=== PATIENT | female | born 1955 | race Caucasian/White ===

== ENCOUNTER 2021-10-15 11:50 | Emergency (ER) | payer MEDICARE, OTHER ==
[~2021-10-15] VITALS: Ht 162.6 cm; Wt 110.7 kg
[2021-10-15] MEDS ORDERED: CLON1 (14:05)
[2021-10-15] MEDS ORDERED: FURO40 (14:06)
[2021-10-15] MEDS ORDERED: GABA300 (14:06)
[2021-10-15] MEDS ORDERED: Ropinirole HCl1 MG (14:07)
[2021-10-15] MEDS ORDERED: K-Dur10 MEQ (14:07)
[2021-10-15] MEDS ORDERED: ALLO300 (14:07)
[2021-10-15] MEDS ORDERED: GLIP5 (14:08)
[2021-10-15] MEDS ORDERED: PLAQUENIL200 MG (14:08)
[2021-10-15] MEDS ORDERED: METF500 (14:08)
[2021-10-15] MEDS ORDERED: ATOR40TA (14:08)
[2021-10-15] MEDS ORDERED: LEVSOD100 (14:08)
[2021-10-15] MEDS ORDERED: CARV3.125 (14:09)
[2021-10-15] MEDS ORDERED: OMEP20ER (14:09)
[2021-10-15] MEDS ORDERED: DULO60 (14:09)
[2021-10-15 14:15] LABS: BASOPHILS ABSOLUTE AUTO 0.06 K/mm3 (0.00-0.23); BASOPHILS PERCENT AUTO 1 % (0-2); EOSINOPHILS PERCENT AUTO 3 % (0-6); Hematocrit 35.5 % (33.0-51.0); IMMATURE GRAN ABSOLUTE AUTO 0.02 K/mm3 (0.00-0.10); IMMATURE GRAN PERCENT AUTO 0 % (0-1); LYMPHOCYTES ABSOLUTE AUTO 1.79 K/mm3 (0.84-5.20); LYMPHOCYTES PERCENT AUTO 22 % (21-46); MONOCYTES ABSOLUTE AUTO 0.63 K/mm3 (0.16-1.47); MONOCYTES PERCENT AUTO 8 % (4-13); Mean Corpuscular HGB 26.5 pg (26.0-34.0); Mean Corpuscular Volume 86 fL (80-100); Mean Platelet Volume 10.8 fL (9.1-12.4); NEUTROPHILS ABSOLUTE AUTO 5.44 K/mm3 (1.96-9.15); NEUTROPHILS PERCENT AUTO 67 % (41-73); Platelet Count 294 K/mm3 (150-400); RDW Coefficient Variation 17.7 % (11.7-14.2); RDW Standard Deviation 55.6 fL (35.1-46.3); Red Blood Cell Count 4.15 M/mm3 (3.80-5.20); White Blood Cell Count 8.14 K/mm3 (4.00-11.30)
[2021-10-15 14:20] LABS: C-REACTIVE PROTEIN, EXT RANGE 1.81 mg/dL (0.000-0.300)
[2021-10-15 14:23] LABS: Albumin, Blood 3.3 g/dL (3.4-5.0); Albumin/Globulin Ratio 0.8 (0.8-1.8); Bilirubin, Total 0.6 mg/dL (0.1-1.0); Bun/Creatinine Ratio 24.2 (12.0-20.0); Calcium, Blood 9.9 mg/dL (8.5-10.1); Creatinine, Blood 0.83 mg/dL (0.40-1.00); Globulin, Blood 4.1 g/dL (2.2-4.0); Potassium, Blood 3.8 mmol/L (3.5-5.5); Total Protein, Blood 7.4 g/dL (6.4-8.2)
[2021-10-15] MEDS ORDERED: LASIX40 MG PO ×2 (15:37→16:35)
[2021-10-15] MEDS ORDERED: CEPH500 PO ×2 (15:37→16:35)
== END 2021-10-15 16:05 | disposition home or self-care (01) ==
LOC: ER 11:50
PROVIDERS: Physician Assistant
DX: I11.0 Hypertensive heart disease with heart failure (principal); I50.9 Heart failure, unspecified; L03.115 Cellulitis of right lower limb; E03.9 Hypothyroidism, unspecified; E11.9 Type 2 diabetes mellitus without complications; Z79.899 Other long term (current) drug therapy; Z79.84 Long term (current) use of oral hypoglycemic drugs; Z86.73 Personal history of transient ischemic attack (TIA), and cerebral infarction without residual deficits
CPT/HCPCS: 36415; 80053; 83880; 85025; 86140; 93005; 93010; 93971; A9270; J1885; J1940

== ENCOUNTER 2021-12-23 07:06 | Emergency (ER) | payer MEDICARE, OTHER ==
[~2021-12-23] VITALS: Ht 162.6 cm; Wt 107.0 kg
[~2021-12-23 07:06] MED LIST: ALLO300; ATOR40TA; CARV3.125; CEPH500 PO; CLON1; DULO60; FURO40; GABA300; GLIP5; K-Dur10 MEQ; LASIX40 MG PO; LEVSOD100; METF500; OMEP20ER; PLAQUENIL200 MG; Ropinirole HCl1 MG
[2021-12-23 08:20] LABS: BASOPHILS ABSOLUTE AUTO 0.07 K/mm3 (0.00-0.23); BASOPHILS PERCENT AUTO 1 % (0-2); EOSINOPHILS ABSOLUTE AUTO 0.11 K/mm3 (0.00-0.68); EOSINOPHILS PERCENT AUTO 1 % (0-6); Hematocrit 34.6 % (33.0-51.0); Hemoglobin 10.6 g/dL (11.5-16.0); IMMATURE GRAN ABSOLUTE AUTO 0.02 K/mm3 (0.00-0.10); IMMATURE GRAN PERCENT AUTO 0 % (0-1); LYMPHOCYTES ABSOLUTE AUTO 1.98 K/mm3 (0.84-5.20); LYMPHOCYTES PERCENT AUTO 19 % (21-46); MONOCYTES PERCENT AUTO 6 % (4-13); Mean Corpuscular HGB Conc 30.6 g/dL (31.5-36.5); Mean Corpuscular Volume 82 fL (80-100); Mean Platelet Volume 11.2 fL (9.1-12.4); NEUTROPHILS ABSOLUTE AUTO 7.73 K/mm3 (1.96-9.15); NEUTROPHILS PERCENT AUTO 74 % (41-73); Platelet Count 324 K/mm3 (150-400); RDW Coefficient Variation 16.3 % (11.7-14.2); RDW Standard Deviation 48.1 fL (35.1-46.3); Red Blood Cell Count 4.24 M/mm3 (3.80-5.20); White Blood Cell Count 10.51 K/mm3 (4.00-11.30)
[2021-12-23 08:35] LABS: Albumin, Blood 3.4 g/dL (3.4-5.0); Albumin/Globulin Ratio 0.9 (0.8-1.8); Bilirubin, Total 0.5 mg/dL (0.1-1.0); Bun/Creatinine Ratio 54.4 (12.0-20.0); Calcium, Blood 10.1 mg/dL (8.5-10.1); Creatinine, Blood 1.03 mg/dL (0.40-1.00); Globulin, Blood 3.6 g/dL (2.2-4.0); Potassium, Blood 4.1 mmol/L (3.5-5.5)
[2021-12-23 09:22] LABS: Source, Urine Clean Catch
[2021-12-23 09:34] LABS: Appearance, Urine Cloudy (Clear); Bilirubin, Urine Neg (Neg); Blood, Urine 5+ (Neg); Color, Urine Yellow (P-Yellow); Glucose Qualitative, Urine Neg (Neg); Ketones, Urine Neg (Neg); Leukocyte Esterase, Urine 1+ (Neg); Nitrite, Urine Neg (Neg); Protein, Urine 2+ (Neg); Urobilinogen, Urine NORM (Normal)
[2021-12-23 09:40] LABS: Percent Saturation 5.7 % (15.0-50.0)
[2021-12-23 09:44] LABS: Bacteria Few /hpf; Red Blood Cells, Urine 50-100 /hpf (0-2); Squamous Epithelial Cells Rare /hpf (Few)
[2021-12-23] MEDS ORDERED: CODE30 PO (12:27)
== END 2021-12-23 12:42 | disposition home or self-care (01) ==
LOC: ER 07:06
PROVIDERS: Emergency Medicine; Physician Assistant
DX: N95.0 Postmenopausal bleeding (principal); G25.81 Restless legs syndrome; I11.0 Hypertensive heart disease with heart failure; I50.9 Heart failure, unspecified; E03.9 Hypothyroidism, unspecified; Z79.899 Other long term (current) drug therapy; Z79.890 Hormone replacement therapy; Z86.73 Personal history of transient ischemic attack (TIA), and cerebral infarction without residual deficits
CPT/HCPCS: 36415; 71046; 76830; 76856; 80053; 81001; 82728; 83540; 83550; 84484; 85025; 87086; 93005; 93010; 96365; 96366; 99284-25; J2916

== ENCOUNTER → 2022-04-06 | Outpatient (CLI) | payer MEDICARE, OTHER ==
[~2022-04-06] MED LIST changes: +ALLOPURINOL1 GM PO; -ATOR40TA; +ATOR40TA PO; +CODE30 PO; +ENTRESTO 24 MG1 EACH PO; -GABA300; +GABA300 PO; -GLIP5; +GLIP5 PO; -K-Dur10 MEQ; +K-Dur10 MEQ PO; -LEVSOD100; +LEVSOD100 PO; -METF500; +METF500 PO; +METO25 PO; -OMEP20ER; +OMEP20ER PO; +ONDA4 PO; +PRAM.125 PO; +SOAANZ20 M1 PO; +SPIR25; +SPIR25 PO; +TRAM50 PO
== END ==
LOC: LAB SHORT 08:00
DX: D64.9 Anemia, unspecified (principal); I11.0 Hypertensive heart disease with heart failure; I50.22 Chronic systolic (congestive) heart failure; M05.79 Rheumatoid arthritis with rheumatoid factor of multiple sites without organ or systems involvement; Z86.13 Personal history of malaria
CPT/HCPCS: 85651

== ENCOUNTER 2022-05-04 08:23 | Day surgery (SDC) | payer MEDICARE, OTHER ==
[~2022-05-04] VITALS: Ht 162.6 cm; Wt 102.1 kg
[2022-05-04] MEDS ORDERED: MAGNESIUM OXID500 MG PO (08:41)
[2022-05-04] MEDS ORDERED: ERGO400 PO (08:42)
--- NOTE | 2022-05-04 11:22 | NUR ---
05/04/22 1122 Renate Briggs REPORT GIVEN TO NURSE [facility].KXW AT 1115. PT IN RECLINER TOLERATING PO FLUIDS AND SNACKS WELL. PT DENIES NAUSEA. PT RATES PAIN 2/10 AND TOLERABLE AT THIS TIME. PT'S AT CHAIRSIDE. PT READY FOR DISCHARGE INSTRUCTIONS.
== END 2022-05-04 11:40 | disposition home or self-care (01) ==
LOC: ORSCSDS 08:23
PROVIDERS: Obstetrics & Gynecology
PROC: 0UDB8ZX Extraction of Endometrium, Via Natural or Artificial Opening Endoscopic, Diagnostic (ICD-10-PCS; principal; 2022-05-04 09:45)
DX: N84.0 Polyp of corpus uteri (principal); N95.0 Postmenopausal bleeding; R93.89 Abnormal findings on diagnostic imaging of other specified body structures; Z86.73 Personal history of transient ischemic attack (TIA), and cerebral infarction without residual deficits; E11.9 Type 2 diabetes mellitus without complications; E03.9 Hypothyroidism, unspecified; Z79.84 Long term (current) use of oral hypoglycemic drugs; Z79.899 Other long term (current) drug therapy
CPT/HCPCS: 82947; 88305; A9270; J2250; J2704; J3010; J7120

== ENCOUNTER 2023-05-01 08:10 | Day surgery (SDC) | payer MEDICARE, OTHER ==
[~2023-05-01] VITALS: Ht 162.6 cm; Wt 110.9 kg
[~2023-05-01 08:10] MED LIST changes: +ACET500 PO; +ALLO300 PO; -ALLOPURINOL1 GM PO; +JARDIANCE10 MG PO; -K-Dur10 MEQ PO; +KLOR-CON 1010 ME9 PO; +MAGNESIUM PO; -METO25 PO; +METO25ER PO; +METO50ER PO; -SPIR25; +TRAZ50 PO; +VITAMIN D32000 UNI1 PO
[2023-05-01] MEDS ORDERED: ENTRESTO 24 MG1 EACH PO (08:35)
--- NOTE | 2023-05-01 08:43 | NUR ---
05/01/23 0843 Rosemary Husain CALL LIGHT WITHIN REACH. PLEDGT IN LEFT EYE AT 0838
[2023-05-01 09:39] VITALS: BP 141/79
== END 2023-05-01 10:01 | disposition home or self-care (01) ==
LOC: ORSCSDS 08:10
PROVIDERS: Student in an Organized Health Care Education/Training Program
PROC: 08RK3JZ Replacement of Left Lens with Synthetic Substitute, Percutaneous Approach (ICD-10-PCS; principal; 2023-05-01 09:30)
DX: E11.36 Type 2 diabetes mellitus with diabetic cataract (principal); H25.12 Age-related nuclear cataract, left eye; Z96.1 Presence of intraocular lens; I50.9 Heart failure, unspecified; Z86.73 Personal history of transient ischemic attack (TIA), and cerebral infarction without residual deficits; I10 Essential (primary) hypertension; E03.9 Hypothyroidism, unspecified; Z79.84 Long term (current) use of oral hypoglycemic drugs; Z79.899 Other long term (current) drug therapy; E66.01 Morbid (severe) obesity due to excess calories; Z68.41 Body mass index [BMI] 40.0-44.9, adult
CPT/HCPCS: 82947; J2250; J3010; J7040; V2632

== ENCOUNTER → 2024-06-16 | Outpatient (CLI) | payer MEDICARE, OTHER | END | disposition home or self-care (01) | LOC: LAB 14:30 → LAB SHORT 14:30 | DX: J18.9 Pneumonia, unspecified organism (principal) | CPT/HCPCS: 87070; 87205 ==